=== PATIENT | male | born 1965 | race Caucasian/White ===

== ENCOUNTER 2022-01-02 23:38 | Emergency (ER) | payer MEDICARE, SELFPAY ==
--- NOTE | ~2022-01-02 | US_ITS ---
EXAMINATION: US scrotum doppler DATE: 01/03/2022 01:48 INDICATION: Right testicular pain and swelling. TECHNIQUE: Grayscale and Doppler ultrasound images of the testes were obtained. COMPARISON: None. FINDINGS: The right testis measures 2.7 x 2.1 x 2.6 cm. The left testis measures 2.9 x 1.8 x 2.0 cm. There is increased vascular flow to right testis. The right epididymis demonstrates increased vascula r flow. The left epididymis is normal with normal vascular flow. There are small bilateral hydroceles . There is a left-sided varicocele. IMPRESSION: 1. Hyperemic right testis and epididymis, consistent with right-sided epididymoorchitis. 2. Small hydroceles. Reviewed, dictated and finalized at location A. IMPRESSION: 1. Hyperemic right testis and epididymis, consistent with right-sided epididym oorchitis. 2. Small hydroceles.
[2022-01-02 23:42] VITALS: BP 126/75; PULSE 103; RESP 18; TEMP 36.4; O2SAT 98
--- NOTE | 2022-01-03 00:16 | ED.MALEGU ---
HPI - Male Genitourinary General Chief complaint: Urogenital-Male Stated complaint: Right testicle pain, sent by PCP for r/o torsion Time Seen by Provider: 01/03/22 00:00 Source: patient Mode of arrival: ambulatory Limitations: no limitations History of Present Illness HPI Narrative: This is a 48-year-old male that presents emergency department for right testicular pain. Ongoing since Monday. Reports swelling of the testicle. Reports the pain radiates into his abdomen. Denies fever, vomiting, dysuria, hematuria. Related Data Allergies Allergy/AdvReac Type Severity Reaction Status Date / Time codeine Allergy Unknown Unknown Verified 01/02/22 23:44 Review of Systems Review of Systems: CONSTITUTIONAL: Denies fever GASTROINTESTINAL: Denies abdominal pain, nausea, vomiting GENITOURINARY: Denies dysuria or hematuria. All systems reviewed & are unremarkable except as noted in HPI and below PMFSH Past Medical History Medical History (Updated 01/03/22 @ 02:27 by Love Trevino PA-C) History of diabetes mellitus Family History Family History (Updated 01/06/17 @ 11:08 by DOCTOR UNKNOWN) Other Diabetes mellitus Family history of Alzheimer's disease Family history of lung cancer Family history of malignant neoplasm Social History Social History Smoking status: Never smoker Alcohol intake: current Exam Narrative: GENERAL: Well-appearing, well-nourished, and in no acute distress. HEAD: Normocephalic, atraumatic. EYES: EOMI. CHEST: Clear to auscultation. No respiratory distress. No wheezes rales or rhonchi HEART: Regular rate and rhythm. No murmur heard. Normal peripheral pulses. ABDOMEN: Soft, nontender, nondistended, normal active bowel sounds. EXTREMITIES: Normal range of motion. No edema. SKIN: Warm, dry, no rash. NEURO: No focal deficits. Alert and oriented x3. PSYCH: Normal mood and affect MALE GENITAL: No abnormal rashes or lesions noted. No urethral discharge. No swelling or redness of the scrotum. Right testicle is tender to palpation Course Vital Signs Vital signs: Vital Signs Temperature 97.6 F 01/02/22 23:42 Pulse Rate 103 H 01/02/22 23:42 Respiratory Rate 18 01/02/22 23:42 Blood Pressure 126/75 01/02/22 23:42 Pulse Oximetry 98 01/02/22 23:42 Oxygen Delivery Room Air 01/02/22 23:42 Temperature 97.6 F 01/02/22 23:42 Pulse Rate 103 H 01/02/22 23:42 Respiratory Rate 18 01/02/22 23:42 Blood Pressure 126/75 01/02/22 23:42 Pulse Oximetry 98 01/02/22 23:42 Oxygen Delivery Room Air 01/02/22 23:42 MDM - Male Genitourinary MDM Narrative Medical decision making narrative: Patient presents the emergency department for right-sided testicular pain noted over the last couple of days. Patient is afebrile and nontoxic-appearing. CBC with mild leukocytosis to 11.8. Also shows normocytic anemia with hemoglobin of 13. Metabolic panel without concerning findings. UA with evidence of infection. This will be sent for culture. Scrotal ultrasound shows findings consistent with right-sided epididymoorchitis. Patient given dose of Rocephin in the ED. Will be discharged with 10 days of levofloxacin. He is to follow-up with urology. He was given warnings to return to the ER Lab Data Attestation: I reviewed the patient's lab results. Result diagrams: 01/03/22 00:27 01/03/22 00:27 Labs: Lab Results 01/03/22 01/03/22 01/03/22 Range/Units 00:27 00:27 02:38 WBC 11.8 H (4.5-10.0) K/mm3 RBC 4.24 L (4.6-6.20) M/mm3 Hgb 13.0 L (14.0-18.0) g/dL Hct 38.2 L (42.0-52.0) % MCV 90.1 (80-100) fl MCH 30.7 (26-34) pg MCHC 34.0 (32-36) g/dl RDW 13.1 (11.5-14.5) % Plt Count 264 (150-375) k/mm3 MPV 10.5 H (7.4-10.4) fl Immature Gran % (Auto) 0.3 (0-0.5) % Neut % (Auto) 66.2 (45.5-73.1) % Lymph % (Auto) 21.6 (18.3-44.2) % [place] % (Auto) 8.0 (2.6-8.5) % Eos % (Auto)
[2022-01-03] MEDS: ONDANSETRON INJ 4 MG/2 ML VIAL IV PUSH (00:26)
[2022-01-03] MEDS: MORPHINE SULFATE (*CRX) 4 MG/ML INJ IV PUSH (00:27)
[2022-01-03 00:37] LABS: Basophils Percent Auto 0.3 % (0.2-1.2); Eosinophils Absolute Auto 0.4 K/mm3 (0-0.3); Eosinophils Percent Auto 3.6 % (0-4.4); Hematocrit 38.2 % (42.0-52.0); Immature Granulocyte Absolute 0.04 K/mm3 (0.00-0.031); Immature Granulocyte Percent A 0.3 % (0-0.5); Lymphocytes Absolute Auto 2.54 K/mm3 (0.9-3.2); Lymphocytes Percent Auto 21.6 % (18.3-44.2); Mean Corpuscular Hemoglobin 30.7 pg (26-34); Mean Corpuscular Volume 90.1 fl (80-100); Mean Platelet Volume 10.5 fl (7.4-10.4); Monocytes Absolute Auto 0.9 K/mm3 (0.1-0.6); Neutrophils Absolute Auto 7.8 K/mm3 (1.3-6.7); Neutrophils Percent Auto 66.2 % (45.5-73.1); Platelet Count Result 264 k/mm3 (150-375); Red Blood Count 4.24 M/mm3 (4.6-6.20); Red Cell Distribution Width 13.1 % (11.5-14.5); White Blood Count 11.8 K/mm3 (4.5-10.0)
[2022-01-03 00:48] LABS: Anion Gap 15 mmol/L (8-16); Blood Urea Nitrogen 19 mg/dL (9-20); Calcium 8.4 mg/dL (8.4-10.2); Carbon Dioxide 24 mmol/L (22-30); Chloride 97 mmol/L (98-107); Estimated Glomerular Filt Rate > 60; Glucose 212 mg/dL (65-110); Potassium 3.7 mmol/L (3.4-5.0); Sodium 136 mmol/L (137-145)
[2022-01-03 02:50] LABS: Appearance Urine Clear (Clear); Bilirubin Urine Negative (Negative); Blood Urine Trace-lysed (Negative); Color Urine Yellow (Yellow); Glucose Urine UA Trace mg/dL (Negative); Ketones Urine Negative (Negative); Leukocyte Esterase Ur Trace LEU/UL (Negative); Nitrate Urine Negative (Negative); Protein Urine 2+ mg/dL (Negative); Urobilinogen Urine 0.2 mg/dL (<2.0); pH Urine 5.5 (5.0-9.0)
[2022-01-03 02:53] LABS: Add Urine Microscopic? YES; Bacteria Urine Trace /hpf; Hyaline Casts Urine 15-19 /lpf; Mucus Urine Rare /lpf; RBC Urine 0-2 /hpf (0-2); Squamous Epithelial Cell Urine Rare /hpf (Few); WBC Urine 16-20 /hpf
--- NOTE | 2022-01-03 03:29 | PC.NURSE ---
Per nadja in lab she is adding on the chlamydia/gonorrhea lab. they are on her list to do as other things have taken priority at this time but it is on her list to add to labs.
== END 2022-01-03 03:35 | disposition home or self-care (01) ==
PROVIDERS: Physician Assistant; Emergency Provider Emergency Medicine; PCP Internal Medicine
DX: N45.3 Epididymo-orchitis (principal); E11.9 Type 2 diabetes mellitus without complications
CPT/HCPCS: 36415; 76870; 80048; 81001; 85025; 87086; 87491; 87591; 93976; 96365; 96375; 99284; J0696; J2270; J2405

== ENCOUNTER 2022-07-14 11:05 | Emergency (ER) | payer MEDICARE, SELFPAY ==
[2022-07-14 11:14] VITALS: BP 130/74; PULSE 94; RESP 21; TEMP 36.1; O2SAT 100
--- NOTE | 2022-07-14 11:18 | ED.GENADULT ---
HPI - General Adult General Chief complaint: Skin/Abscess/Foreign Body Stated complaint: step on a nail Time Seen by Provider: 07/14/22 11:22 Source: patient, RN notes reviewed and old records reviewed Mode of arrival: ambulatory Limitations: no limitations History of Present Illness HPI narrative: 57-year-old male presents to the [facility] after stepping on a nail yesterday. Area of injury left heel Patient states that he was he was wearing a boot when he stepped on nail. Bleeding is controlled. Bruised area to the heel. No puncture wound noted small abrasion with dried blood. Tender to touch. Unknown tetanus Related Data Home Medications Medication Instructions Recorded Confirmed albuterol sulfate 90 mcg/actuation 2 inh inhalation DIRECTED 07/14/22 07/14/22 aerosol inhaler alprazolam 0.5 mg tablet 0.5 mg PO DAILY 07/14/22 07/14/22 benzonatate 200 mg capsule 200 mg PO DAILY 07/14/22 07/14/22 fluticasone propionate 115 1 inh inhalation DIRECTED 07/14/22 07/14/22 mcg-salmeterol 21 mcg/actuation HFA inhaler (Advair HFA) lisinopril 40 mg tablet 40 mg PO DAILY 07/14/22 07/14/22 omeprazole 20 mg capsule,delayed 20 mg PO DAILY 07/14/22 07/14/22 release rosuvastatin 10 mg tablet 10 mg PO DAILY 07/14/22 07/14/22 Allergies Allergy/AdvReac Type Severity Reaction Status Date / Time codeine Allergy Unknown Swelling Verified 07/14/22 11:21 Review of Systems Review of Systems: All systems reviewed & are unremarkable except as noted in HPI and below Constitutional: Constitutional: Reports no additional constitutional complaints Eyes: Eyes: Reports no additional eye complaints ENT: Reports system reviewed and no additional complaints, except as documented Cardiovascular: Cardiovascular: Reports no additional cardiovascular complaints, Denies chest pain and Denies dyspnea Respiratory: Respiratory: Reports no additional respiratory complaints, Denies chest congestion, Denies cough and Denies dyspnea Gastrointestinal: Gastrointestinal: Reports no additional gastrointestinal complaints, Denies abdominal pain, Denies nausea and Denies vomiting Musculoskeletal: Musculoskeletal: Reports as per HPI Integumentary/Breasts: Skin/Breast: Reports as per HPI Neurologic: Reports system reviewed and no additional complaints, except as documented Psychiatric: Psychiatric: Reports no additional psychiatric complaints Allergic/Immunologic: Allergic/Immunologic: Reports no additional allergic/immunologic complaints PMF Past Medical History Medical History History of diabetes mellitus Family History Family History Other Diabetes mellitus Family history of Alzheimer's disease Family history of lung cancer Family history of malignant neoplasm Social History Social History Smoking status: Never smoker Alcohol intake: current Comments At the time of my signature, I reviewed and agree with the nursing past medical, surgical, social, and family history. There is no relevant family history pertinent to the patient complaint. Exam Const: General: cooperative, healthy appearing, comfortable, no acute distress, well developed, alert and well nourished Nutritional Appearance: well nourished Orientation/consciousness: patient oriented x3 Limitations: no limitations HENMT: Head: normal to inspection Ears: hearing grossly normal bilaterally and external ears normal Face/Nose/Sinus: Normal external nose present, Normal nares present, Normal nasal mucous membranes and turbinates present and normal facial exam Face and sinus: normal facial exam Mouth: Yes lip normal Eyes: General: appearance normal, both eyes and all related structures Alignment and Position: alignment normal Periorbital: periorbital findings normal Pupils: Equal, round and reactive
[2022-07-14] MEDS: TETANUS,DIPHTHERIA,AC PERTUSSIS ADULT (0.5 ML) BOOSTRIX IM (11:57)
== END 2022-07-14 12:00 | disposition home or self-care (01) ==
PROVIDERS: Emergency Provider Nurse Practitioner
DX: S91.332A Puncture wound without foreign body, left foot, initial encounter (principal); W45.0XXA Nail entering through skin, initial encounter; Z23 Encounter for immunization; E11.9 Type 2 diabetes mellitus without complications
CPT/HCPCS: 90471; 90715; 99213; G0463

== ENCOUNTER 2022-10-14 23:46 | Emergency (ER) | payer OTHER, MEDICARE, SELFPAY ==
--- NOTE | ~2022-10-14 | CT_ITS ---
EXAMINATION: CT brain wo con INDICATION: Head injury COMPARISON: None TECHNIQUE: Standard unenhanced head CT. The dose-length product (DLP) was 605.33 mGy-cm. The mA was a djusted according to patient size. Iterative reconstruction technique was employed. FINDINGS: There is no intracranial hemorrhage, acute infarction, or abnormal mass lesion. The ventric les are normal. There is no abnormal mass effect or midline shift. The macias-white matter differentiat ion is normal. The basal cisterns are patent. The orbits are normal. There is mild mucosal thickening of the paranasal sinuses. IMPRESSION: 1. No acute intracranial abnormality. Reviewed, dictated and finalized at location A.
--- NOTE | ~2022-10-14 | XR_ITS ---
EXAMINATION: XR chest 1V portable INDICATION: Chest pain TECHNIQUE: Portable AP chest at 0049 hours COMPARISON: None available FINDINGS: There is mild atelectasis. The lung volumes are low. No pleural effusion or pneumothorax. T he cardiomediastinal silhouette is normal. IMPRESSION: 1. Mild atelectasis. Reviewed, dictated and finalized at location A. IMPRESSION: 1. Mild atelectasis.
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
--- NOTE | ~2022-10-14 | XR_ITS ---
EXAMINATION: XR pelvis 1-2V INDICATION: Pelvic pain TECHNIQUE: AP view the pelvis is obtained on two radiographs. COMPARISON: None available FINDINGS: Bone alignment is normal. There is no fracture. The soft tissues are unremarkable. Moderate lower lumbar spondylosis is noted. IMPRESSION: 1. No acute osseous abnormality. Reviewed, dictated and finalized at location A.
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
--- NOTE | ~2022-10-14 | XR_ITS ---
EXAMINATION: XR chest 1V portable INDICATION: Hypoxia, chest pain TECHNIQUE: Portable AP chest at 0531 hours COMPARISON: None available FINDINGS: There is mild atelectasis. No pleural effusion or pneumothorax. The cardiomediastinal silho uette is normal. IMPRESSION: 1. Mild atelectasis. Reviewed, dictated and finalized at location A. IMPRESSION: 1. Mild atelectasis.
[2022-10-14 23:50] VITALS: BP 123/67; PULSE 90; RESP 22; TEMP 36.1; O2SAT 100
[2022-10-14 23:57] VITALS: BP 163/94; PULSE 88; RESP 24; O2SAT 92
[2022-10-15] VITALS (9 sets, daily range): BP systolic 126–146; BP diastolic 77–80; PULSE 89–101; RESP 17–28; O2SAT 86–100
--- NOTE | 2022-10-15 00:03 | ECG_ITS ---
Measurements Intervals [place] Rate: 92 P: 25 WV: 185 QRS: 49 QRSD: 84 T: 53 QT: 337 QTc: 419 Interpretive Statements SINUS RHYTHM POSSIBLE LEFT ATRIAL ENLARGEMENT [-0.1mV P WAVE IN V1/V2] SEPTAL MYOCARDIAL INFARCTION , PROBABLY OLD [40+ ms Q WAVE IN V1/V2] ABNORMAL ECG NO PREVIOUS ECG AVAILABLE FOR COMPARISON Electronically Signed On 10-15-2022 12:40:23 CDT by Shine Verdugo M.D.
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
[2022-10-15 00:13] LABS: Glucose Point of Care 124 mg/dl (65-105)
[2022-10-15 00:24] LABS: Basophils Percent Auto 0.2 % (0.2-1.2); Eosinophils Absolute Auto 0.3 K/mm3 (0-0.3); Eosinophils Percent Auto 2.4 % (0-4.4); Hematocrit 40.3 % (42.0-52.0); Hemoglobin 13.2 g/dL (14.0-18.0); Immature Granulocyte Absolute 0.09 K/mm3 (0.00-0.031); Immature Granulocyte Percent A 0.9 % (0-0.5); Lymphocytes Absolute Auto 2.65 K/mm3 (0.9-3.2); Lymphocytes Percent Auto 25.8 % (18.3-44.2); Mean Corpuscular HGB Conc 32.8 g/dl (32-36); Mean Corpuscular Hemoglobin 29.5 pg (26-34); Mean Corpuscular Volume 90.2 fl (80-100); Mean Platelet Volume 10.4 fl (7.4-10.4); Monocytes Absolute Auto 0.6 K/mm3 (0.1-0.6); Monocytes Percent Auto 5.7 % (2.6-8.5); Neutrophils Absolute Auto 6.7 K/mm3 (1.3-6.7); Platelet Count Result 247 k/mm3 (150-375); Red Blood Count 4.47 M/mm3 (4.6-6.20); Red Cell Distribution Width 13.9 % (11.5-14.5); White Blood Count 10.3 K/mm3 (4.5-10.0)
[2022-10-15] MEDS: MORPHINE SULFATE (*CRX) 4 MG/ML INJ IV PUSH (00:28)
[2022-10-15] MEDS: ONDANSETRON INJ 4 MG/2 ML VIAL IV PUSH (00:28)
[2022-10-15 00:29] LABS: Alanine Aminotransferase 37 U/L (6-50); Albumin Level 4.3 g/dL (3.5-5.1); Alkaline Phosphatase 80 U/L (38-126); Anion Gap 8 mmol/L (8-16); Aspartate Amino Transferase 40 U/L (17-59); Bilirubin,Total 0.2 mg/dL (0.2-1.3); Blood Urea Nitrogen 25 mg/dL (9-20); Calcium 8.9 mg/dL (8.4-10.2); Carbon Dioxide 24 mmol/L (22-30); Chloride 101 mmol/L (98-107); Estimated CRCL calculation 70 ml/min; Estimated Glomerular Filt Rate > 60; Glucose 150 mg/dL (65-110); Sodium 133 mmol/L (137-145)
[2022-10-15 00:30] LABS: Partial Thromboplastin Time 28.4 SECONDS (22.3-36.8); Prothrombin Time 13.3 Seconds (11.1-14.7)
[2022-10-15] MEDS: HYDROmorphone HCL INJ (*CRX) 1 MG/ML SYR 0.5 MG IV PUSH ×2 (01:31→05:05)
[2022-10-15] MEDS: KETOROLAC 15 MG/ML VIAL (*BKC) IV PUSH (04:24)
[2022-10-15] MEDS: ACETAMINOPHEN 500 MG TABLET 1000 MG PO (04:24)
[2022-10-15 04:35] LABS: Troponin I < 0.012 ng/mL (0.000-0.034)
--- NOTE | 2022-10-15 05:19 | PC.NURSE ---
Called [facility] at 0150. The dispatcher Nkechi said eta will be between 0345 and 0400. Omar called back at 0354 for a updated eta at 0500. Called again at 0427 for updated eta at 0530. Called back at 0512 for a new eta 0630. Called [facility] at 0514 will be here in 25mins. Cancelled omar at 0519 to cancel transport.
== END 2022-10-15 06:11 | disposition short-term general hospital (02) ==
PROVIDERS: Emergency Medicine; Emergency Provider Physician Assistant; PCP Internal Medicine
DX: S01.21XA Laceration without foreign body of nose, initial encounter (principal); R07.9 Chest pain, unspecified; R10.9 Unspecified abdominal pain; M54.2 Cervicalgia; R10.2 Pelvic and perineal pain; E11.9 Type 2 diabetes mellitus without complications; V28.49XA Other motorcycle driver injured in noncollision transport accident in traffic accident, initial encounter
CPT/HCPCS: 36415; 70450; 70486; 71045; 71260; 72125; 72128; 72131; 72170; 74177; 80053; 82948; 84484; 85025; 85610; 85730; 86850; 86900; 86901; 93005; 96374; 96375; 96376; 99285; A9270; J1170; J1885; J2270; J2405; Q9967

== ENCOUNTER 2022-12-28 13:44 | Emergency (ER) | payer MEDICARE, SELFPAY ==
--- NOTE | ~2022-12-28 | XR_ITS ---
EXAMINATION: XR chest 2V DATE: 12/28/2022 14:31 INDICATION: 5 days of productive cough TECHNIQUE: PA and lateral views of the chest were obtained. COMPARISON: Chest radiograph dated 10/15/2022 FINDINGS: Volume loss of the right hemithorax with elevation of the right hemidiaphragm and linear bands of dis coid atelectasis in the right middle and right lower lobes. Left lung is clear. No pulmonary edema, p leural effusion or pneumothorax. The cardiomediastinal silhouette is normal. Mild to moderate thoraci c spondylosis. IMPRESSION: 1. Linear bands of discoid atelectasis/scarring the right middle and lower lobes with secondary volum e loss in right hemithorax and elevation right hemidiaphragm. Reviewed, dictated and finalized at location A. IMPRESSION: 1. Linear bands of discoid atelectasis/scarring the right middle and lower lobe s with secondary volume loss in right hemithorax and elevation right hemidiaphr [facility].
[2022-12-28 13:57] VITALS: BP 145/87; PULSE 117; RESP 16; TEMP 36.2; O2SAT 98
--- NOTE | 2022-12-28 14:16 | ED.URI ---
HPI - URI/Sore Throat General Chief Complaint: Upper Respiratory Infection Stated Complaint: Chills/Fatique Time Seen by Provider: 12/28/22 13:46 Source: patient Mode of arrival: ambulatory Limitations: no limitations History of Present Illness HPI Narrative: Patient is a 57-year-old female who presents with 5 days fatigue, chills, cough. Patient had prescription for doxycycline sentinel on Monday and has been taking it daily since Monday. Reports no improvement of symptoms. Patient is also taking valacyclovir for cold sores but states he does not currently have them, script was called in same time as the doxycycline. Patient states he has taken Mucinex and used eucalyptus steam for relief of symptoms of congestion. Also reports decreased hearing in irritation to right ear. Patient has PCP appointment tomorrow. Related Data Home Medications Medication Instructions Recorded Confirmed albuterol sulfate 90 mcg/actuation 2 inh inhalation DIRECTED 07/14/22 12/28/22 aerosol inhaler alprazolam 0.5 mg tablet 0.5 mg PO DAILY 07/14/22 12/28/22 fluticasone propionate 115 1 inh inhalation DIRECTED 07/14/22 12/28/22 mcg-salmeterol 21 mcg/actuation HFA inhaler (Advair HFA) lisinopril 40 mg tablet 40 mg PO DAILY 07/14/22 12/28/22 omeprazole 20 mg capsule,delayed 20 mg PO DAILY 07/14/22 12/28/22 release rosuvastatin 10 mg tablet 10 mg PO DAILY 07/14/22 12/28/22 doxycycline hyclate 100 mg tablet 100 mg PO DAILY 12/28/22 12/28/22 sildenafil 100 mg tablet 100 mg PO DAILY 12/28/22 12/28/22 valacyclovir 500 mg tablet 500 mg PO DAILY 12/28/22 12/28/22 Allergies Allergy/AdvReac Type Severity Reaction Status Date / Time codeine Allergy Unknown Swelling Verified 12/28/22 13:52 Review of Systems Review of Systems: All systems reviewed & are unremarkable except as noted in HPI and below Constitutional: Constitutional: Denies body ache(s), Reports chills, Reports fatigue, Denies fever(s), Denies headache(s), Denies malaise and Denies weakness Eyes: Eyes: Denies blurry vision, Denies itchy eyes and Denies loss of vision ENT: Reports otalgia, Denies headache(s), Denies nasal congestion, Denies sinus pain and Denies sore throat Cardiovascular: Cardiovascular: Denies chest pain, Denies irregular heart rhythm and Denies dyspnea Respiratory: Respiratory: Reports cough and Denies dyspnea Gastrointestinal: Gastrointestinal: Denies abdominal pain, Denies diarrhea, Denies nausea and Denies vomiting Musculoskeletal: Musculoskeletal: Denies back pain, Denies myalgias and Denies arthralgias Integumentary/Breasts: Skin/Breast: Denies pruritus and Denies rash Neurologic: Denies headache(s), Denies loss of vision and Denies weakness Psychiatric: Psychiatric: Reports no additional psychiatric complaints Endocrine: Endocrine: Denies fatigue Allergic/Immunologic: Allergic/Immunologic: Denies itchy eyes PMFSH Past Medical History Medical History History of diabetes mellitus History of diabetes mellitus Family History Family History Other Diabetes mellitus Family history of Alzheimer's disease Family history of lung cancer Family history of malignant neoplasm Social History Social History Smoking status: Never smoker Alcohol intake: current Substance use: never Comments At time of signature, agree with nursing past medical, surgical, social and family history. There is no relevant family history pertinent to the presenting complaint. Exam Const: General: cooperative, healthy appearing, comfortable, no acute distress and well nourished Nutritional Appearance: well nourished Orientation/consciousness: patient oriented x3 Limitations: no limitations HENMT: Head: normal to inspection, normocephalic and atraumatic Ears: hearing grossly normal bilat
[2022-12-28 15:30] VITALS: PULSE 98
== END 2022-12-28 15:30 | disposition home or self-care (01) ==
PROVIDERS: Emergency Provider Nurse Practitioner Family
DX: J06.9 Acute upper respiratory infection, unspecified (principal); R05.9 Cough, unspecified; H61.23 Impacted cerumen, bilateral; E11.9 Type 2 diabetes mellitus without complications
CPT/HCPCS: 69209; 71046; 99213; G0463

== ENCOUNTER 2023-07-10 14:39 | Emergency (ER) | payer MEDICARE, SELFPAY ==
--- NOTE | 2023-07-10 14:49 | PC.NURSE ---
Pt ambulated out of ED, states he does not want to be seen. States I am not waiting here, people are fucking dying here. geospatial information scientist assisted pt who was walking out and this RN attempted to get pt to stay for an eval. Pt declined, continued to leave, this RN told pt we have to remove his IV. Pt ambulated back into the ED with the enterprise security architect and allowed for IV to be removed. Pt then states I am walking down to [place] to get water. I am not gonna be seen. Pt exited the ED in NAD.
== END 2023-07-10 14:50 | disposition left against medical advice (07) ==
LOC: ANHED 14:55
DX: Z20.822 Contact with and (suspected) exposure to COVID-19 (principal)
CPT/HCPCS: 99199